=== PATIENT | female | born 2000 | race Caucasian/White ===

== ENCOUNTER 2019-10-31 11:52 | Emergency (ER) | payer OTHER ==
--- NOTE | 2019-10-31 12:03 | PDOC ---
Rapid Medical Evaluation Chief Complaint: Bite Time Seen by Provider: 10/31/19 12:01 Medical Evaluation: Allergies Allergy/AdvReac Type Severity Reaction Status Date / Time No Known Allergies Allergy Verified 02/12/15 22:09 10/31/19 12:02 CC: rt leg wound of unknown etiology x 1 week worsening over the past 2 days, no diabetes Exam: noted raised erythematous papule with whitish drainage tort hamstring Plan: ft, wound cx 10/31/19 12:03 Discharge Disposition - Diagnosis Abscess - Referrals - Patient Instructions - Post Discharge Activity
[2019-10-31 12:10] VITALS: BP 119/77; PULSE 71; TEMP 98.2; BMI 18.9
[2019-10-31] MEDS ORDERED: IBUPROFEN 400 MG TABLET (FP) PO ONE ×2 (12:20→12:23)
[2019-10-31] MEDS ORDERED: BACITRACIN 15 GM TUBE TOPICAL OINTMENT TP ONE (12:20)
--- NOTE | 2019-10-31 12:26 | PDOC ---
History of Present Illness - General Chief Complaint: Bite Stated Complaint: RT LEG PAIN Time Seen by Provider: 10/31/19 12:01 History Source: Patient Exam Limitations: Clinical Condition - History of Present Illness Initial Comments: 10/31/19 12:27 Patient with no significant past medical history present with complaint of one- week history of pimple-like swelling to the back of right lower leg with redness around pimple. Patient reports been putting bacitracin on abscess area without improvement. Denies fever, chills, weakness to leg, numbness or tingling sensation. Denies any other symptoms. Patient shaves legs with a razor. Timing/Duration: reports: just prior to arrival, week (1 week) Past History - Medical History Allergies/Adverse Reactions: Allergies Allergy/AdvReac Type Severity Reaction Status Date / Time No Known Allergies Allergy Verified 02/12/15 22:09 Home Medications: Ambulatory Orders Metoclopramide HCl [Reglan] 10 mg PO BID PRN #10 tablet 02/13/15 Ibuprofen 800 mg PO Q8H PRN #20 tablet 10/31/19 Mupirocin Ointment [Bactroban 2% Ointment -] 1 applic TP BID #1 tube 10/31/19 Sulfamethoxazole/Trimethoprim [Bactrim Ds -] 1 tab PO BID #14 tablet 10/31/19 - Immunization History Immunization Up to Date: Yes - Psycho-Social/Smoking History Smoking History: Current every day smoker Have you smoked in the past 12 months: Yes Number of Cigarettes Smoked Daily: 5 Information on smoking cessation initiated: Yes - Substance Abuse Hx (Audit-C & DAST Scrn) How often the patient has a drink containing alcohol: Never Score: In Men: 4 or > Positive; In Women: 3 or > Positive: 0 Screen Result (Pos requires Nsg. Audit-10AR): Negative In the last yr the pt used illegal drug/Rx for NonMed reason: No Score: Yes response is considered Positive: 0 Screen Result (Positive result requires Nsg. DAST-10): Negative Review of Systems - Review of Systems Able to Perform ROS?: Yes Is the patient limited Nepali proficient: No Constitutional: No: Chills, Fever, Malaise HEENTM: No: Symptoms Reported, See HPI, Eye Pain, Blurred Vision, Tearing, Recent change in vision, Double Vision, Cataracts, Ear Pain, Ocular Prothesis, Ear Discharge, Nose Pain, Nose Congestion, Tinnitus, Nose Bleeding, Hearing Loss, Throat Pain, Throat Swelling, Mouth Pain, Dental Problems, Difficulty Swallowing, Mouth Swelling, Other Respiratory: No: Symptoms reported, See HPI, Cough, Orthopnea, Shortness of Breath, SOB with Exertion, SOB at Rest, Stridor, Wheezing, Productive cough, Hemoptysis, Other Cardiac (ROS): No: Symptoms Reported, See HPI, Chest Pain, Edema, Irregular Heart Rate, Lightheadedness, Palpitations, Syncope, Chest Tightness, Other Musculoskeletal: Yes: Symptoms Reported, See HPI, Muscle Pain (back of right leg) Integumentary: Yes: Symptoms Reported, See HPI, Erythema (around abscess to right leg), Lumps (abscess to back of right leg) Neurological: No: Symptoms reported, Numbness, Paresthesia, Tingling All Other Systems: Reviewed and Negative *Physical Exam - Vital Signs Last Vital Signs Temp Pulse Resp BP Pulse Ox 98.2 F 71 20 119/77 100 10/31/19 12:02 10/31/19 12:02 10/31/19 12:02 10/31/19 12:02 10/31/19 12:02 - Physical Exam 10/31/19 12:35 GENERAL: Well developed, well nourished. Awake and alert. No acute distress. NECK: Supple. Full ROM. CARDIOVASCULAR: Regular rate and rhythm. No murmurs, rubs, or gallops. Distal pulses are 2+ and symmetric. PULMONARY: No evidence of respiratory distress. Lungs clear to auscultation bilaterally. No wheezing, rales or rhonchi. MUSCULOSKELETAL Normal range of motion at all joints. SKIN: Warm and dry. Normal capillary refill. 1 cm area of hard induration consistent with folliculitis with surrounding mild erythema with cellulitis NEUROLOGICAL: Alert, awake, appropriate. Gait is normal without ataxia. PSYCHIATRIC: Cooperative. Good eye contact. Appropriate mood General Appearance: Yes: Nourished, Appropriately Dressed. No: Apparent Distress Medical Decision Making - Medical Decision Making 10/31/19 12:28 Patient with no significant past medical history present with complaint of one- week history of pimple-like swelling to the back of right lower leg with redness around pimple. Patient reports been putting bacitracin on abscess area without improvement. Denies fever, chills, weakness to leg, numbness or tingling sensation. Denies any other symptoms. Patient shaves legs with a razor. Exam significant for 1 cm area of hard induration with surrounding mild erythema consistent with folliculitis with cellulitis. Induration not ready to be I&D as it is very hard. Patient stable for discharge on Bactrim antibiotics and topical mupirocin for cellulitis and folliculitis with advised to do warm compresses with dermatology follow-up Discharge - Discharge Information Problems reviewed: Yes Clinical Impression/Diagnosis: Folliculitis, Cellulitis of leg without foot, right Condition: Stable Disposition: HOME - Admission No - Additional Discharge Information Prescriptions: Sulfamethoxazole/Trimethoprim [Bactrim Ds -] 1 tab PO BID #14 tablet Mupirocin Ointment [Bactroban 2% Ointment -] 1 applic TP BID #1 tube Ibuprofen 800 mg PO Q8H PRN #20 tablet PRN Reason: pain - Follow up/Referral Referrals: Heidi Lee MD [Primary Care Provider] - - Patient Discharge Instructions Patient Printed Discharge Instructions: DI for Cellulitis -- Adult, DI for Folliculitis Additional Instructions: Take prescribed oral antibiotics and topical antibiotics as prescribed and finish it. Apply warm compresses to skin abscess area 2-3 times a day for 5 minutes as needed for swelling. Follow-up with referring dermatology in 3 to 5 days for reassessment if no improvement - Post Discharge Activity Work/Back to School Note: Back to Work
== END 2019-10-31 12:41 | disposition home or self-care (01) ==
LOC: JERFT 11:52 → JER 11:52 → JERFT 12:41
DX: L73.9 Follicular disorder, unspecified (principal); L03.115 Cellulitis of right lower limb
CPT/HCPCS: 99283-25

== ENCOUNTER 2022-06-05 01:08 | Emergency (ER) | payer OTHER ==
[2022-06-05 01:34] VITALS: BP 115/60; PULSE 84; RESP 18; TEMP 98.3; BMI 22.3
[2022-06-05 03:10] LABS: THROAT:GRP A STREP NOT DETECTED (NOTDETECTED)
== END 2022-06-05 04:00 | disposition home or self-care (01) ==
LOC: JER 01:08
DX: J02.9 Acute pharyngitis, unspecified (principal)
CPT/HCPCS: 0241U-QW; 87651; 99283-25